=== PATIENT | male | born 1965 | race African-American/Black ===

== ENCOUNTER 2021-08-22 22:12 | Emergency (ER) | payer SELFPAY ==
[~2021-08-22] VITALS: Ht 177.8 cm; Wt 72.6 kg
--- NOTE | 2021-08-22 22:18 | NUR ---
[id number] FROM [facility] FOR SYSTOLIC BP IN 60'S. AT TRIAGE BP 95/63. PATIENT ALERT AND ORIENTED X3. BROUGHT IN BY STRETCHER. IN BED 03 ON MONITOR AND POX. PATIENT WAS SEEN BY MD AT TRIAGE.
--- NOTE | 2021-08-22 22:37 | NUR ---
IV LINE ESTABLISHED, RFA 20G. BLOOD COLLECTED AND SENT TO LAB
--- NOTE | 2021-08-22 22:50 | NUR ---
CERTIFIED ENERGY MANAGER AT PT'S BEDSIDE
[2021-08-22 22:59] LABS: BASOPHILS % (AUTO) 0.5 % (0.0-2.0); EOSINOPHILS % (AUTO) 2.4 % (0.0-6.0); HEMATOCRIT 29 % (39-51); HEMOGLOBIN 9.6 g/dL (13.5-17.5); LYMPHOCYTES # (AUTO) 1.4 K/uL (0.8-4.8); LYMPHOCYTES % (AUTO) 16.1 % (20.0-44.0); MEAN CORPUSCULAR HGB CONC 33 g/dl (31.0-36.0); MEAN CORPUSCULAR VOLUME 78 fL (80-96); MONOCYTES # (AUTO) 0.6 K/uL (0.1-1.30); MONOCYTES % (AUTO) 6.9 % (2.0-12.0); NEUTROPHILS # (AUTO) 6.5 K/uL (1.8-8.9); NEUTROPHILS % (AUTO) 74.1 % (43.0-81.0); PLATELET COUNT (AUTO) 389 K/uL (150-450); RED BLOOD CELL COUNT(AUTO) 3.75 MIL/uL (4.5-6.0); WHITE BLOOD COUNT (AUTO) 8.8 K/uL (4.3-11.0)
[2021-08-22 23:07] LABS: CALCIUM, SERUM 9.8 mg/dL (8.5-10.1); CARBON DIOXIDE 27 mmol/L (21-32); CHLORIDE 103 mmol/L (98-107); CREATININE 1.4 mg/dL (0.6-1.3); GLUCOSE 177 mg/dL (74-106); POTASSIUM 4.6 mmol/L (3.5-5.1); SODIUM SERUM 136 mmol/L (136-145); UREA NITROGEN, BLOOD 24 mg/dL (7-18)
[2021-08-23] MEDS ORDERED: IV NS 0.9% 1,000 ML IV PRN
--- NOTE | 2021-08-23 03:17 | NUR ---
REPORT GIVEN TO MELIDA FROM [facility]
--- NOTE | 2021-08-23 03:20 | NUR ---
TRANSPORT WILL BE HERE TO TAKE PT BACK TO FACILITY IN 15 MINS
--- NOTE | 2021-08-23 03:31 | NUR ---
REPORT GIVEN TO [facility] FOR PT TO DC TO [facility]. VSS.
[2021-08-23 03:40] VITALS: BP 112/60
== END 2021-08-23 03:50 ==
LOC: ER 22:19
DX: E86.0 Dehydration (principal); N17.9 Acute kidney failure, unspecified; I10 Essential (primary) hypertension; E11.9 Type 2 diabetes mellitus without complications; Z86.73 Personal history of transient ischemic attack (TIA), and cerebral infarction without residual deficits; Z88.0 Allergy status to penicillin; Z88.2 Allergy status to sulfonamides
CPT/HCPCS: 36415 ×2; 71045; 80048; 84484 ×2; 85025; 93005; 96360; 99285; J7030